=== PATIENT | male | born 1975 | race American Indian/Alaskan Native ===

== ENCOUNTER 2017-07-03 15:19 | Emergency (ER) | payer SELFPAY ==
[2017-07-03 16:02] VITALS: BP 116/67
[2017-07-03] MEDS ORDERED: MOTRIN PO ONE (19:25)
--- NOTE | 2017-07-03 19:30 | Emergency Department Report ---
Minor Respiratory - HPI Chief Complaint: Upper Respiratory Infection Stated Complaint: cough and body aches - day 2 Time Seen by Provider: 07/03/17 19:24 Duration: 2 Days Pain Location: Throat, Chest (cough), Other (tickle in throat when he lies down triggering cough) Severity: mild Minor Respiratory: Yes Able to Tolerate Fluids, Yes Cough, Yes Fever (low grade) , No Rhinorrhea, No Sore Throat, No Ear Pain, No Sick Contacts, No Hemoptysis, No Chest Pain, No Shortness of Breath Other History: non toxic. ambulatory. taking po ED Review of Systems ROS: Stated complaint: FLU LIKE SX Other details as noted in HPI Comment: All other systems reviewed and negative Constitutional: see HPI, malaise Eyes: as per HPI ENT: as per HPI Respiratory: see HPI, cough Cardiovascular: as per HPI. denies: chest pain Endocrine: no symptoms reported ED Past Medical Hx - Past Medical History Previous Medical History?: No - Surgical History Past Surgical History?: No - Social History Smoking Status: Current Every Day Smoker Substance Use Type: Marijuana - Medications Home Medications: Home Medications Medication Instructions Recorded Confirmed Last Taken Type Amoxicillin 500 mg PO BID #20 capsule 07/03/17 Unknown Rx Benzonatate [Tessalon Perles] 100 mg PO Q8HR PRN #20 capsule 07/03/17 Unknown Rx Fluticasone [Flonase] 1 spray NS QDAY #1 bottle 07/03/17 Unknown Rx predniSONE [Deltasone] 20 mg PO DAILY #5 tablet 07/03/17 Unknown Rx Minor Respiratory Exam - Exam General: Vital signs noted. No distress. Alert and acting appropriately. HEENT: Yes Pharyngeal Erythema, Yes Moist Mucous Membranes, No Pharyngeal Exudates, No Rhinorrhea, No Conjuctival Injection, No Frontal Tenderness, No Maxillary Tenderness Ear: Neither TM Bulge, Neither TM Erythema, Neither EAC Pain, Neither EAC Discharge Neck: Yes Supple, No Adenopathy Lungs: Yes Good Air Exchange, Yes Cough, No Wheezes, No Ronchi, No Stridor, No Labored Respirations, No Retractions, No Use of Accessory Muscles, No Other Abnormal Lung Sounds Heart: Yes Regular, No Murmur Abdomen: Yes Normal Bowel Sounds, No Tenderness, No Peritoneal Signs Skin: No Rash, No Edema Neurologic: Alert and oriented, no deficits. Musculoskeletal: Unremarkable. ED Course Vital Signs 07/03/17 15:59 Temperature 99.7 F H Pulse Rate 92 H Respiratory 16 Rate Blood Pressure 116/67 O2 Sat by Pulse 98 Oximetry - Reevaluation(s) Reevaluation #1: 07/03/17 19:28 Patient presents to the ER with a 2 day history of cough. He tells me the symptoms have been for 1 day he has told triage that it's been for a week. Patient asking for a work note. He also complains of bodyaches per day. He has a low-grade fever 99.7. He is nontoxic and non-ill appearing. Sitting in a chair reading a book. Taking by mouth fluids. No allergies no home medicines no major medical problems Assessment is essentially unremarkable except for a cough that is raspy on consultation and a temperature of 99.7 orally. Will treat as viral upper respiratory illness given flu swabs have been negative. Patient not presenting as a typical influenza we've noted in the emergency room the season. Antibiotic prescription given with instructions when to start. Follow-up instructions as well as return to ER instructions have been given. Discharge home ambulatory in no acute distress ED Medical Decision Making - Medical Decision Making see note - Differential Diagnosis ro influenza Critical care attestation.: If time is entered above; I have spent that time in minutes in the direct care of this critically ill patient, excluding procedure time. ED Disposition Clinical Impression: Upper respiratory infection, Viral respiratory illness, Cough Disposition: [id number] TO HOME OR SELFCARE Is pt being admited?: No Does the pt Need Aspirin: No Condition: Stable Instructions: Viral Syndrome (ED), Cold Symptoms (ED) Additional Instructions: Rest Hydrate well with fluids Medications as we discussed today. Her flu swab was negative. Treat sure low- grade fever with Motrin and/or Tylenol. [id number] sign and symptom relief as we discussed. Antibiotic prescription has been provided but only started after 24-48 hours if her symptoms are not improving or if they're getting worse. Follow-up with primary care doctor in 48 hours to ensure your responding to treatment. Tessalon Perles can be used for your cough He turned to the ER if you develop a fever greater than 100.5 but does not come down with Motrin or Tylenol. Or if he develops shortness of breath or chest pain. Prescriptions: Amoxicillin 500 mg PO BID #20 capsule Benzonatate [Tessalon Perles] 100 mg PO Q8HR PRN #20 capsule PRN Reason: Cough Fluticasone [Flonase] 1 spray NS QDAY #1 bottle predniSONE [Deltasone] 20 mg PO DAILY #5 tablet Referrals: BYRON NEUMANN MD [Primary Care Provider] - 3-5 Days Forms: Work/School Release Form(ED) Time of Disposition: 19:26
== END 2017-07-03 19:38 | disposition home or self-care (01) ==
LOC: ED 15:19
DX: J06.9 Acute upper respiratory infection, unspecified (principal); B97.89 Other viral agents as the cause of diseases classified elsewhere; F17.200 Nicotine dependence, unspecified, uncomplicated; F12.10 Cannabis abuse, uncomplicated
CPT/HCPCS: 87400; 99282

== ENCOUNTER 2020-05-10 18:34 | Emergency (ER) | payer SELFPAY ==
[2020-05-10 18:37] VITALS: BP 148/85
== END 2020-05-10 22:50 | disposition left against medical advice (07) ==
LOC: ED 18:34
DX: L02.214 Cutaneous abscess of groin (principal); Z53.21 Procedure and treatment not carried out due to patient leaving prior to being seen by health care provider